=== PATIENT | female | born 1985 | race Two or more races ===

== ENCOUNTER 2017-08-03 20:39 | Emergency (ER) | payer BC, MEDICAID ==
[~2017-08-03] VITALS: Ht 177.8 cm; Wt 104.3 kg
[~2017-08-03 20:39] MED LIST: AUGMENTIN 875-1 EAC1 ORAL; NKM; NYSTATIN100000 UN1 ORAL; PROAIR HFA8.5 GM INH; ROBITUSSIN COU118 M4 PO; ZOFRAN4 M3 ORAL
[2017-08-03 21:05] VITALS: BP 133/73
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
[2017-08-03] MEDS ORDERED: IBUPROFEN600 MG ORAL (21:13)
[2017-08-03] MEDS ORDERED: CYCLOBENZAPRINE10 MG ORAL (21:13)
[2017-08-03 21:27] VITALS: BP 133/73
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
== END 2017-08-03 21:27 | disposition home or self-care (01) ==
LOC: EMR 21:06
DX: S16.1XXA Strain of muscle, fascia and tendon at neck level, initial encounter (principal); S93.401A Sprain of unspecified ligament of right ankle, initial encounter; V43.52XA Car driver injured in collision with other type car in traffic accident, initial encounter; Y92.410 Unspecified street and highway as the place of occurrence of the external cause
CPT/HCPCS: 99283